=== PATIENT | female | born 1975 | race Two or more races ===

== ENCOUNTER 2024-12-27 01:00 | Emergency (ER) | payer SELFPAY ==
[2024-12-27] MEDS ORDERED: LORazepam 2 MG/ML VIAL IM ONE (01:15)
== END 2024-12-27 01:04 | disposition left against medical advice (07) ==
LOC: EMS 01:04
DX: R46.89 Other symptoms and signs involving appearance and behavior (principal); Z53.21 Procedure and treatment not carried out due to patient leaving prior to being seen by health care provider